=== PATIENT | female | born 2000 | race Hispanic/Latino ===

== ENCOUNTER 2021-03-05 18:19 | Emergency (ER) | payer MEDICAID, OTHER ==
[~2021-03-05] VITALS: Ht 170.2 cm; Wt 99.8 kg
[~2021-03-05 18:19] MED LIST: TYL3LL PO
[2021-03-05] MEDS ORDERED: LIDOCAINE/PRILOCAINE CREAM 5GM TUBE TP ONE (20:16)
[2021-03-05] MEDS ORDERED: LIDOCAINE HCL 2% JELLY 5 ML ONE (20:17)
[2021-03-05] MEDS ORDERED: SULFAMETHOX-TMP DS 800/160 TAB PO SCH (20:30)
[2021-03-05] MEDS ORDERED: SULF1TAB42 PO (20:31)
[2021-03-05] MEDS ORDERED: IBUP-2070 PO (20:31)
[2021-03-05 20:35] VITALS: BP 143/65
== END 2021-03-05 20:48 | disposition home or self-care (01) ==
LOC: EDH 18:19
DX: L02.31 Cutaneous abscess of buttock (principal); Z90.49 Acquired absence of other specified parts of digestive tract
CPT/HCPCS: 10060

== ENCOUNTER 2021-11-12 22:07 | Emergency (ER) | payer MEDICAID, OTHER ==
[~2021-11-12] VITALS: Ht 167.6 cm; Wt 96.6 kg
[~2021-11-12 22:07] MED LIST changes: +IBUP-2070 PO; +SULF1TAB42 PO
[2021-11-12 23:23] LABS: BASOPHILS % (AUTO) 0.4 % (0.0-5.0); HEMATOCRIT 35.8 % (36-48); LYMPHOCYTES % (AUTO) 10.6 % (21.0-51.0); MEAN CORPUSCULAR HEMOGLOBIN 21.9 pg (27.0-33.0); MEAN CORPUSCULAR VOLUME 70.5 fL (80-100); MONOCYTES % (AUTO) 7.2 % (3.0-13.0); NEUTROPHILS % (AUTO) 81.3 % (40.0-77.0); PLATELET COUNT (AUTO) 392 K/uL (130-400); RED BLOOD CELL COUNT(AUTO) 5.08 MIL/uL (4.00-5.50); RED CELL DISTRIBUTION WIDTH 16.5 % (11.0-15.5); WHITE BLOOD COUNT (AUTO) 21.8 K/uL (4.8-10.8)
[2021-11-12 23:35] LABS: CREATININE 0.7 mg/dL (0.5-1.5); POTASSIUM 3.9 mmol/L (3.5-5.1)
[2021-11-12 23:39] LABS: ALBUMIN 4.1 g/dL (3.5-5.0)
[2021-11-12 23:43] LABS: APPEARANCE,URINE CLEAR (CLEAR); BILIRUBIN,URINE SMALL (NEGATIVE); COLOR,URINE YELLOW (YELLOW); GLUCOSE, URINE (UA) NEGATIVE (NEGATIVE); KETONES,URINE 40 mg/dL (NEGATIVE); LEUKOCYTE ESTERASE ,URINE NEGATIVE (NEGATIVE); NITRATE,URINE NEGATIVE (NEGATIVE); OCCULT BLOOD,URINE NEGATIVE (NEGATIVE); PH,URINE 6.5 (5.0-8.0); PROTEIN,URINE 100 mg/dL (NEGATIVE)
[2021-11-12 23:46] LABS: HCG,QUALITATIVE URINE NEGATIVE (NEGATIVE)
[2021-11-12 23:50] LABS: BACTERIA,URINE Few /HPF (None Seen); MUCUS,URINE Many LPF (None Seen); RBC,URINE 0-1 /HPF (0-1); SQUAMOUS EPITHELIAL CELL,UR Moderate /HPF (0-2)
[2021-11-13] MEDS ORDERED: LIDOCAINE 1%-EPI 1:100,000 20 ML VIAL IJ ONE (00:36)
[2021-11-13] MEDS ORDERED: CLINDAMYCIN IVPB 900MG/50ML 50 ML IV ONE (01:30)
[2021-11-13] MEDS ORDERED: IOHEXOL 350 MG/ML 100ML INFUS..BTL IV ONE (01:49)
[2021-11-13] MEDS ORDERED: DiphenhydrAMINE HCL 50 MG/ML VIAL ONE (02:18)
[2021-11-13] MEDS ORDERED: SOLU-MEDROL 125MG VIAL ONE (02:19)
[2021-11-13] MEDS ORDERED: IBUP-2070 PO (04:03)
[2021-11-13] MEDS ORDERED: CLIN-141 PO (04:03)
[2021-11-13 04:15] VITALS: BP 125/71
[2021-11-13] MEDS ORDERED: MORPHINE 4 MG SYG ONE (04:18)
[2021-11-13] MEDS ORDERED: MORPHINE 4 MG SYG IVP ONE (04:30)
== END 2021-11-13 04:31 | disposition home or self-care (01) ==
LOC: EDH 22:07
DX: L02.31 Cutaneous abscess of buttock (principal); Z79.1 Long term (current) use of non-steroidal anti-inflammatories (NSAID); Z79.52 Long term (current) use of systemic steroids; Z90.49 Acquired absence of other specified parts of digestive tract
CPT/HCPCS: 99285; 80053; 83690; 85025; 83605; 81001; 81025; 36415; 74177; 10061; 96365; 96375; J1200; J3490 ×2; J2930; J2270; Q9967

== ENCOUNTER 2021-11-16 19:17 | Emergency (ER) | payer OTHER ==
[~2021-11-16] VITALS: Ht 167.6 cm; Wt 96.6 kg
[~2021-11-16 19:17] MED LIST changes: +CLIN-141 PO
[2021-11-16 19:19] VITALS: BP 121/61
== END 2021-11-16 20:07 | disposition home or self-care (01) ==
LOC: EDH 19:17
DX: L02.31 Cutaneous abscess of buttock (principal); Z79.1 Long term (current) use of non-steroidal anti-inflammatories (NSAID); Z90.49 Acquired absence of other specified parts of digestive tract
CPT/HCPCS: 99281

== ENCOUNTER 2022-02-10 13:54 | Emergency (ER) | payer MEDICAID ==
[~2022-02-10] VITALS: Ht 170.2 cm; Wt 95.7 kg
[2022-02-10] MEDS ORDERED: KETOROLAC 60 MG VIAL (30MG/ML) IM ONE (14:30)
[2022-02-10] MEDS ORDERED: IBUP-2071 PO (15:03)
[2022-02-10 15:10] VITALS: BP 142/80
== END 2022-02-10 15:38 | disposition home or self-care (01) ==
LOC: EDH 13:54
DX: S82.831A Other fracture of upper and lower end of right fibula, initial encounter for closed fracture (principal); E66.9 Obesity, unspecified; Z68.33 Body mass index [BMI] 33.0-33.9, adult; Z79.1 Long term (current) use of non-steroidal anti-inflammatories (NSAID); Z90.49 Acquired absence of other specified parts of digestive tract; W18.39XA Other fall on same level, initial encounter; Y93.89 Activity, other specified; Y92.89 Other specified places as the place of occurrence of the external cause; Y99.8 Other external cause status
CPT/HCPCS: 99284; 29515; 73610; 73630; 96372; J1885

== ENCOUNTER 2022-11-22 15:09 | Emergency (ER) | payer MEDICAID ==
[~2022-11-22] VITALS: Ht 170.2 cm; Wt 99.8 kg
[~2022-11-22 15:09] MED LIST changes: +IBUP-2071 PO
[2022-11-22] MEDS ORDERED: MORPHINE 4 MG SYG IVP ONE (16:00)
[2022-11-22] MEDS ORDERED: ONDANSETRON 4MG INJ IVP ONE (16:00)
[2022-11-22 16:29] LABS: BASOPHILS # (AUTO) 0.06 K/uL (0.00-0.20); BASOPHILS % (AUTO) 0.7 % (0.0-5.0); EOSINOPHILS # (AUTO) 0.01 K/uL (0.00-0.70); EOSINOPHILS % (AUTO) 0.1 % (0.0-8.0); HEMATOCRIT 35.2 % (36-48); IMMATURE GRANULOCYTE ABSOLUTE 0.03 K/uL (0-1); LYMPHOCYTES # (AUTO) 1.6 K/uL (1.0-4.8); LYMPHOCYTES % (AUTO) 18.8 % (21.0-51.0); MEAN CORPUSCULAR HEMOGLOBIN 22.1 pg (27.0-33.0); MEAN CORPUSCULAR HGB CONC 31.3 g/dL (32.0-36.0); MEAN CORPUSCULAR VOLUME 70.8 fL (80-100); MONOCYTES # (AUTO) 0.7 K/uL (0.1-1.0); MONOCYTES % (AUTO) 7.9 % (3.0-13.0); NEUTROPHILS % (AUTO) 72.1 % (40.0-77.0); PLATELET COUNT (AUTO) 354 K/uL (130-400); RED BLOOD CELL COUNT(AUTO) 4.97 MIL/uL (4.00-5.50); RED CELL DISTRIBUTION WIDTH 14.3 % (11.0-15.5); WHITE BLOOD COUNT (AUTO) 8.4 K/uL (4.8-10.8)
[2022-11-22 16:31] LABS: APPEARANCE,URINE CLEAR (CLEAR); BILIRUBIN,URINE NEGATIVE (NEGATIVE); GLUCOSE, URINE (UA) NEGATIVE (NEGATIVE); KETONES,URINE NEGATIVE (NEGATIVE); LEUKOCYTE ESTERASE ,URINE NEGATIVE Leu/uL (NEGATIVE); NITRATE,URINE NEGATIVE (NEGATIVE); OCCULT BLOOD,URINE NEGATIVE (NEGATIVE); PH,URINE 6.5 (5.0-8.0); PROTEIN,URINE NEGATIVE (NEGATIVE); UROBILINOGEN,URINE 0.2 mg/dL (0.2-1.0)
[2022-11-22 16:32] LABS: ADD UA MICROSCOPIC NO; COLOR,URINE YELLOW (YELLOW)
[2022-11-22 16:41] LABS: HCG,QUALITATIVE URINE NEGATIVE (NEGATIVE)
[2022-11-22 16:50] LABS: ALBUMIN 3.7 g/dL (3.5-5.0); BILIRUBIN,TOTAL 0.4 mg/dL (0.2-1.0); CREATININE 0.6 mg/dL (0.5-1.5); POTASSIUM 3.8 mmol/L (3.5-5.1); TOTAL PROTEIN, SERUM 7.5 g/dL (6.0-8.3)
[2022-11-22] MEDS ORDERED: IOHEXOL-350 75 ML VIAL IV ONE (17:31)
[2022-11-22] MEDS ORDERED: IBUP-2070 PO (18:25)
[2022-11-22] MEDS ORDERED: ONDA4TAB10 PO (18:25)
[2022-11-22 18:39] VITALS: BP 123/57; PULSE 62; RESP 17; O2SAT 100
== END 2022-11-22 18:39 | disposition home or self-care (01) ==
LOC: EDH 15:09
DX: R10.2 Pelvic and perineal pain (principal); R11.0 Nausea; Z88.8 Allergy status to other drugs, medicaments and biological substances; Z90.89 Acquired absence of other organs
CPT/HCPCS: 99285; 74176; 96374; 76856; 96375; 80053; 85025; 83605; 81003; 81025; 36415; J2405; J2270; Q9967